=== PATIENT | female | born 1980 | race Two or more races ===

== ENCOUNTER 2022-08-22 19:49 | Emergency (ER) | payer MEDICAID, OTHER ==
[~2022-08-22] VITALS: Ht 152.4 cm; Wt 73.7 kg
[2022-08-22 20:35] LABS: Eosinophils # (auto) 0 10 ^3/uL (0-0.8); Eosinophils % (auto) 0.1 % (0.0-7.0); Lymphocytes # (auto) 1.3 10 ^3/uL (0.4-5.4); Monocytes # (auto) 0.2 10 ^3/uL (0-1.3); Monocytes % (auto) 2.1 % (0.0-12.0)
[2022-08-22 20:37] LABS: Basophils # (auto) 0.1 10 ^3/uL (0-0.2); Basophils % (auto) 0.6 % (0.0-2.0); Hematocrit 19.9 % (36.0-46.0); Lymphocytes % (auto) 12.8 % (10.0-50.0); Mean Corpuscular Hemoglobin 24.7 pg (28.0-32.0); Mean Corpuscular Hgb Conc. 32.1 g/dL (32.0-36.0); Neutrophils # (auto) 8.4 10 ^3/uL (1.6-8.6); Neutrophils % (auto) 84.4 % (37.0-80.0); Red Blood Cells 2.58 10^6/uL (4.0-5.20); Red Cell Distribution Width 18.4 % (11.8-14.3); White Blood Cell 9.9 10^3/uL (4.4-10.8)
[2022-08-22 20:39] LABS: Hemoglobin 6.4 g/dL (12.2-16.2)
[2022-08-22 20:57] LABS: Albumin 3.4 g/dL (3.4-5.0); Potassium 3.9 mmol/L (3.5-5.1)
[2022-08-22 21:00] LABS: BUN/Creatinine Ratio 17.9 (10.0-20.0); Bilirubin, Total 0.4 mg/dL (0.2-1.0); Total Protein 6.7 g/dL (6.4-8.2)
[2022-08-22 23:35] VITALS: BP 119/63
[2022-08-22] MEDS ORDERED: ONDANSETRON ODT 4 MG TAB PO ONE (23:45)
[2022-08-22 23:55] VITALS: BP 104/53
[2022-08-23] MEDS ORDERED: MORPHINE SULFATE 4 MG/ML SYR/VIAL IV ONE (01:00)
[2022-08-23 02:49] VITALS: BP 106/54
[2022-08-23 03:40] VITALS: BP 103/59
[2022-08-23 04:00] VITALS: BP 107/60
[2022-08-23 06:28] VITALS: BP 128/81
== END 2022-08-23 06:55 | disposition home or self-care (01) ==
LOC: ER 19:54
DX: O03.9 Complete or unspecified spontaneous abortion without complication (principal); R07.89 Other chest pain; R10.2 Pelvic and perineal pain; Z3A.00 Weeks of gestation of pregnancy not specified
CPT/HCPCS: 36415; 36430; 76801; 80053; 84702; 85025; 86850; 86900; 86901; 86920; 93005; 96374; 99285; J2270; P9016; Q0162

== ENCOUNTER 2022-09-07 04:47 | Inpatient (IN) | payer MEDICAID ==
[~2022-09-07] VITALS: Ht 154.9 cm; Wt 78.8 kg
[2022-09-07 06:48] LABS: Basophils # (auto) 0 10 ^3/uL (0-0.2); Eosinophils # (auto) 0.1 10 ^3/uL (0-0.8); Monocytes # (auto) 0.4 10 ^3/uL (0-1.3); Nucleated Red Blood Cells % 0.1 %; Red Cell Distribution Width 18.1 % (11.8-14.3)
[2022-09-07 06:50] LABS: Basophils % (auto) 0.4 % (0.0-2.0); Eosinophils % (auto) 1.9 % (0.0-7.0); Hematocrit 26.9 % (36.0-46.0); Lymphocytes # (auto) 1.3 10 ^3/uL (0.4-5.4); Lymphocytes % (auto) 22.3 % (10.0-50.0); Mean Corpuscular Hemoglobin 27.1 pg (28.0-32.0); Mean Corpuscular Hgb Conc. 33.2 g/dL (32.0-36.0); Mean Corpuscular Volume 81.6 fL (80.0-100.0); Monocytes % (auto) 6.1 % (0.0-12.0); Neutrophils # (auto) 4.2 10 ^3/uL (1.6-8.6); Neutrophils % (auto) 69.3 % (37.0-80.0)
[2022-09-07 07:05] LABS: Albumin 3.5 g/dL (3.4-5.0); Potassium 3.8 mmol/L (3.5-5.1)
[2022-09-07 07:10] LABS: BUN/Creatinine Ratio 17.7 (10.0-20.0); Bilirubin, Total 0.5 mg/dL (0.2-1.0); Total Protein 7.5 g/dL (6.4-8.2)
[2022-09-07 10:12] LABS: Urine Bacteria None Seen /hpf (None Seen); Urine WBC None Seen /hpf (0 - 5)
[2022-09-07 10:37] LABS: Urine Blood 3+ /uL (Negative)
[2022-09-07] MEDS ORDERED: cefTRIAXone 1GM/50ML D5W 50 ML IV ONE (12:45)
[2022-09-07] MEDS ORDERED: ceFAZolin 1GM/50ML 100 ML IV ONE (13:11)
[2022-09-07] MEDS ORDERED: HYDROmorphone HCL 2 MG/ML VL/or syr ONE (13:21)
[2022-09-07] MEDS ORDERED: MIDAZOLAM HCL 2MG/2ML 2ml VIAL (1mg/ml) ONE (13:21)
[2022-09-07] MEDS ORDERED: fentaNYL CITRATE 100 MCG/2 ML VL ONE (13:21)
[2022-09-07] MEDS ORDERED: ROCURONIUM 10MG/ML 10ML VIAL IV ONE (13:22)
[2022-09-07] MEDS ORDERED: fentaNYL CITRATE 5 ML ONE (13:22)
[2022-09-07] MEDS ORDERED: PROPOFOL 10 MG/ML 20 ML IV ONE (13:22)
[2022-09-07] MEDS ORDERED: NEOSTIGMINE 1 MG/ML INJ (10mg/10ML VIAL) ONE (13:22)
[2022-09-07] MEDS ORDERED: DexAMETHasone SOD PHOS 10MG/1ML VIAL INJ ONE (13:22)
[2022-09-07] MEDS ORDERED: SODIUM CHLORIDE LOCK 10 ML ONE (13:22)
[2022-09-07] MEDS ORDERED: ONDANSETRON HCL 4 MG/2 ML VIAL ONE (13:22)
[2022-09-07] MEDS ORDERED: LIDOCAINE W/ EPINEPHRINE 1% 20ML VIAL ONE (13:25)
[2022-09-07] MEDS ORDERED: BUPIVACAINE 0.25% INJ 50ML VIAL ONE (13:25)
[2022-09-07 13:28] LABS: Partial Thromboplastin Time 24.5 sec (24.6-33.4)
[2022-09-07] MEDS ORDERED: HYDROmorphone HCL 2 MG/ML VL/or syr IV PRN ×2 (13:45→15:30)
[2022-09-07] MEDS ORDERED: METOCLOPRAMIDE HCL 5MG/ml INJ 2ml VIAL IV PRN (13:45)
[2022-09-07] MEDS ORDERED: MORPHINE SULFATE INJ 2 MG/ml SYRG IV PRN ×2 (13:45→15:45)
[2022-09-07] MEDS ORDERED: SUGAMMADEX 200mg/2ml Vial (100MG/ML) IV ONE (15:12)
[2022-09-07] MEDS ORDERED: DOXAPRAM HCL 20 MG/ML 20ML VIAL INJ IV ONE (15:18)
[2022-09-07] MEDS ORDERED: ONDANSETRON HCL 4 MG/2 ML VIAL IV PRN (15:30)
[2022-09-07] MEDS ORDERED: RHO (D) IMMUNE GLOBULIN 300 MCG INJ IM PRN (15:30)
[2022-09-07] MEDS ORDERED: SODIUM CHLORIDE 0.9% 1,000 ML IV SCH (15:30)
[2022-09-07] MEDS ORDERED: NITROGLYCERIN 0.4 MG SL TAB SL PRN (15:45)
[2022-09-07] MEDS: HYDROmorphone HCL 2 MG/ML VL/or syr IV PRN ×3 (16:02→16:25)
[2022-09-07 20:00] VITALS: BP 110/60
[2022-09-07] MEDS: ceFAZolin 1GM/50ML 50 ML IV SCH (20:49)
[2022-09-07] MEDS ORDERED: NORPTMEDS (20:50)
[2022-09-07 22:00] VITALS: BP 95/46
[2022-09-07] MEDS ORDERED: DOCUSATE SOD 100 MG CAP PO PRN (22:00)
[2022-09-07] MEDS: SODIUM CHLORIDE 0.9% 1,000 ML IV SCH (22:00)
[2022-09-07] MEDS ORDERED: HYDROcodone-ACET 10/325MG TAB PO PRN (23:15)
[2022-09-07 23:29] LABS: Eosinophils # (auto) 0 10 ^3/uL (0-0.8); Monocytes # (auto) 0.1 10 ^3/uL (0-1.3)
[2022-09-07 23:30] LABS: Basophils # (auto) 0 10 ^3/uL (0-0.2); Hematocrit 22.7 % (36.0-46.0); Hemoglobin 7.3 g/dL (12.2-16.2); Lymphocytes # (auto) 0.5 10 ^3/uL (0.4-5.4); Lymphocytes % (auto) 5.3 % (10.0-50.0); Mean Corpuscular Hemoglobin 27.2 pg (28.0-32.0); Mean Corpuscular Volume 84.9 fL (80.0-100.0); Monocytes % (auto) 0.9 % (0.0-12.0); Neutrophils # (auto) 9.4 10 ^3/uL (1.6-8.6); Neutrophils % (auto) 93.8 % (37.0-80.0); Red Blood Cells 2.67 10^6/uL (4.0-5.20)
[2022-09-08] VITALS (10 sets, daily range): BP systolic 102–129; BP diastolic 54–71
[2022-09-08] MEDS: ceFAZolin 1GM/50ML 50 ML IV SCH ×3 (04:59→21:40)
[2022-09-08] MEDS ORDERED: BISACODYL 10 MG RECT SUPP PR PRN (07:30)
[2022-09-08] MEDS: HYDROmorphone HCL 2 MG/ML VL/or syr IV PRN ×2 (08:36→15:30)
[2022-09-08] MEDS ORDERED: FER325T PO (09:36)
[2022-09-08] MEDS ORDERED: HYDR-4902 PO (09:36)
[2022-09-08] MEDS ORDERED: DOCU-94 PO (09:36)
[2022-09-08] MEDS: SODIUM CHLORIDE 0.9% 1,000 ML IV SCH ×2 (10:30→23:00)
[2022-09-08 18:25] LABS: Basophils # (auto) 0 10 ^3/uL (0-0.2); Basophils % (auto) 0.2 % (0.0-2.0); Eosinophils # (auto) 0 10 ^3/uL (0-0.8); Eosinophils % (auto) 0.2 % (0.0-7.0); Lymphocytes # (auto) 1.6 10 ^3/uL (0.4-5.4); Monocytes # (auto) 0.6 10 ^3/uL (0-1.3); Neutrophils # (auto) 6.5 10 ^3/uL (1.6-8.6); White Blood Cell 8.8 10^3/uL (4.4-10.8)
[2022-09-08 18:27] LABS: Hematocrit 23.2 % (36.0-46.0); Hemoglobin 7.8 g/dL (12.2-16.2); Lymphocytes % (auto) 18.4 % (10.0-50.0); Mean Corpuscular Hemoglobin 28.2 pg (28.0-32.0); Mean Corpuscular Hgb Conc. 33.8 g/dL (32.0-36.0); Mean Corpuscular Volume 83.6 fL (80.0-100.0); Monocytes % (auto) 7.3 % (0.0-12.0); Neutrophils % (auto) 73.9 % (37.0-80.0); Red Blood Cells 2.78 10^6/uL (4.0-5.20)
[2022-09-09 05:00] VITALS: BP 108/54
[2022-09-09] MEDS: ceFAZolin 1GM/50ML 50 ML IV SCH ×2 (06:09→14:00)
[2022-09-09 08:05] VITALS: BP 120/58
[2022-09-09 08:57] VITALS: BP_SYST 102; BP_SYST 115; BP_DIAS 52; BP_DIAS 68
[2022-09-09] MEDS: SODIUM CHLORIDE 0.9% 1,000 ML IV SCH (11:30)
[2022-09-09 13:00] VITALS: BP 113/60
== END 2022-09-09 14:30 | disposition home or self-care (01) | DRG 564 ==
LOC: ER 04:47 → OVERFLOW 15:55 → WEST WING 17:56
PROVIDERS: ADMIT Obstetrics & Gynecology; ATTEND Obstetrics & Gynecology
PROC: 02N Heart and Great Vessels, Release (ICD-10-PCS; 2022-09-07)
PROC: 10D07Z8 Extraction of Products of Conception, Other, Via Natural or Artificial Opening (ICD-10-PCS; principal; 2022-09-07 14:19)
PROC: 0DNU4ZZ Release Omentum, Percutaneous Endoscopic Approach (ICD-10-PCS; 2022-09-07 14:19)
PROC: 30233N1 Transfusion of Nonautologous Red Blood Cells into Peripheral Vein, Percutaneous Approach (ICD-10-PCS; 2022-09-08)
DX: O03.4 Incomplete spontaneous abortion without complication (principal); K66.0 Peritoneal adhesions (postprocedural) (postinfection); O01.1 Incomplete and partial hydatidiform mole; O01.9 Hydatidiform mole, unspecified
CPT/HCPCS: 36415; 76801; 76817; 80053; 81001; 84702; 85025; 85610; 85730; 86850; 86900; 86901; 86920; 96374; G0378; J0690; J1100; J2250; J2405; J2704; J3490

== ENCOUNTER → 2023-01-03 | Outpatient (CLI) | payer MEDICAID ==
[~2023-01-03] MED LIST: DOCU-94 PO; FER325T PO; HYDR-4902 PO; NORPTMEDS
[2023-01-03 08:34] LABS: Basophils # (auto) 0 10 ^3/uL (0-0.2); Lymphocytes # (auto) 1.4 10 ^3/uL (0.4-5.4); Monocytes # (auto) 0.3 10 ^3/uL (0-1.3); Nucleated Red Blood Cells % 0.1 %
[2023-01-03 08:36] LABS: Basophils % (auto) 0.8 % (0.0-2.0); Eosinophils # (auto) 0.2 10 ^3/uL (0-0.8); Eosinophils % (auto) 3.6 % (0.0-7.0); Hematocrit 30.2 % (36.0-46.0); Hemoglobin 9.2 g/dL (12.2-16.2); Lymphocytes % (auto) 30.4 % (10.0-50.0); Mean Corpuscular Hgb Conc. 30.5 g/dL (32.0-36.0); Mean Corpuscular Volume 75.4 fL (80.0-100.0); Neutrophils # (auto) 2.7 10 ^3/uL (1.6-8.6); Neutrophils % (auto) 59.2 % (37.0-80.0); Red Blood Cells 4.01 10^6/uL (4.0-5.20); Red Cell Distribution Width 17.7 % (11.8-14.3); White Blood Cell 4.5 10^3/uL (4.4-10.8)
[2023-01-03 08:38] LABS: Urine Blood Negative /uL (Negative); Urine Clarity HAZY (Clear); Urine Color Yellow (Yellow); Urine Protein, UAD 1+ (Negative); Urine Urobilinogen Normal (Negative)
[2023-01-03 09:13] LABS: Alanine Aminotransferase 29 U/L (7-40); Albumin 4.5 g/dL (3.2-4.8); Alkaline Phosphatase 69 U/L (46-116); Anion Gap 9 (5-15); Aspartate Aminotransferase 24 U/L (13-40); BUN/Creatinine Ratio 10.8 (10.0-20.0); Blood Urea Nitrogen 7 mg/dL (9-23); Carbon Dioxide 24 mmol/L (20-30); Chloride 108 mmol/L (98-107); Cholesterol 160 mg/dL (< 200); Glucose 132 mg/dL (74-106); HDL Cholesterol 43 mg/dL (40-59); LDL Cholesterol 105 mg/dL (< 100); Potassium 3.9 mmol/L (3.5-5.1); Sodium 141 mmol/L (136-145); Triglycerides 105 mg/dL (< 150)
[2023-01-03 09:14] LABS: Bilirubin, Total 0.7 mg/dL (0.2-1.0); Total Protein 7.6 g/dL (5.7-8.2)
[2023-01-03 13:55] LABS: Free T4 (Free Thyroxine) 0.98 ng/dL (0.89-1.76)
[2023-01-04 22:06] LABS: Chlamydia Trachomatis, NAA Negative (Negative); Neisseria gonorrhoeae, NAA Negative (Negative)
== END | disposition home or self-care (01) ==
LOC: LAB 08:10
PROVIDERS: ATTEND Internal Medicine
DX: C02.0 Malignant neoplasm of dorsal surface of tongue (principal); E78.5 Hyperlipidemia, unspecified; D64.9 Anemia, unspecified
CPT/HCPCS: 36415; 80053; 80061; 81003; 81025; 82274; 82607; 83540; 84439; 84443; 85025

== ENCOUNTER → 2023-03-07 | Outpatient (CLI) | payer MEDICAID ==
[2023-03-07 09:53] LABS: Basophils # (auto) 0 10 ^3/uL (0-0.2); Eosinophils # (auto) 0.3 10 ^3/uL (0-0.8); Hematocrit 26.6 % (36.0-46.0); Lymphocytes # (auto) 1.4 10 ^3/uL (0.4-5.4); Mean Corpuscular Hemoglobin 21.9 pg (28.0-32.0); Mean Corpuscular Hgb Conc. 29.9 g/dL (32.0-36.0); Mean Corpuscular Volume 73.2 fL (80.0-100.0); Red Blood Cells 3.64 10^6/uL (4.0-5.20)
[2023-03-07 09:55] LABS: Basophils % (auto) 0.7 % (0.0-2.0); Eosinophils % (auto) 6.1 % (0.0-7.0); Monocytes # (auto) 0.3 10 ^3/uL (0-1.3); Monocytes % (auto) 5.5 % (0.0-12.0); Neutrophils % (auto) 59.7 % (37.0-80.0); Red Cell Distribution Width 19.4 % (11.8-14.3)
[2023-03-07 11:03] LABS: Alanine Aminotransferase 24 U/L (7-40); Albumin 4.5 g/dL (3.2-4.8); Alkaline Phosphatase 76 U/L (46-116); Anion Gap 9 (5-15); Aspartate Aminotransferase 17 U/L (13-40); BUN/Creatinine Ratio 13.8 (10.0-20.0); Bilirubin, Total 0.5 mg/dL (0.2-1.0); Blood Urea Nitrogen 8 mg/dL (9-23); Calcium 8.9 mg/dL (8.5-10.1); Carbon Dioxide 25 mmol/L (20-30); Chloride 105 mmol/L (98-107); Glucose 118 mg/dL (74-106); Sodium 139 mmol/L (136-145); Total Protein 7.3 g/dL (5.7-8.2)
[2023-03-07 11:48] LABS: Hypochromia Moderate; Platelet Estimate Adequate
[2023-03-07 11:49] LABS: Anisocytosis Slight
== END | disposition home or self-care (01) ==
LOC: LAB 09:34
PROVIDERS: ATTEND Internal Medicine
DX: R73.9 Hyperglycemia, unspecified (principal); D50.9 Iron deficiency anemia, unspecified; A04.8 Other specified bacterial intestinal infections
CPT/HCPCS: 36415; 80053; 82274; 83036; 85025

== ENCOUNTER 2023-04-15 07:03 | Inpatient (IN) | payer MEDICAID ==
[2023-04-11 09:56] LABS: Urine Epithelial Cast None Seen /hpf (<5)
[2023-04-11 10:01] LABS: Basophils # (auto) 0 10 ^3/uL (0-0.2); Basophils % (auto) 0.5 % (0.0-2.0); Eosinophils # (auto) 0.1 10 ^3/uL (0-0.8); Hematocrit 30.1 % (36.0-46.0); Hemoglobin 9.2 g/dL (12.2-16.2); Mean Corpuscular Hemoglobin 21.6 pg (28.0-32.0); Monocytes # (auto) 0.3 10 ^3/uL (0-1.3); Neutrophils # (auto) 3.7 10 ^3/uL (1.6-8.6)
[2023-04-11 10:05] LABS: Eosinophils % (auto) 2.2 % (0.0-7.0); Lymphocytes # (auto) 1.3 10 ^3/uL (0.4-5.4); Mean Corpuscular Hgb Conc. 30.4 g/dL (32.0-36.0); Mean Corpuscular Volume 71.1 fL (80.0-100.0); Neutrophils % (auto) 68.3 % (37.0-80.0); Nucleated Red Blood Cells % 0.1 %; Red Blood Cells 4.23 10^6/uL (4.0-5.20); Red Cell Distribution Width 19.1 % (11.8-14.3); White Blood Cell 5.4 10^3/uL (4.4-10.8)
[2023-04-11 10:18] LABS: Urine Bacteria FEW /hpf (None Seen); Urine Blood 3+ /uL (Negative); Urine Clarity HAZY (Clear); Urine Color Yellow (Yellow); Urine Mucus FEW (None Seen); Urine Protein, UAD 1+ (Negative); Urine Specific Gravity 1.025 (1.001-1.035); Urine Urobilinogen Normal (Negative); Urine WBC 8 /hpf (0 - 5); Urine pH 6.5 (5.0-8.0)
[2023-04-11 10:22] LABS: INR 1.04 (0.9-1.15); Partial Thromboplastin Time 27.6 SEC (24.5-34.5); Prothrombin Time 10.9 sec (9.3-11.8)
[2023-04-11 10:50] LABS: Alanine Aminotransferase 19 U/L (7-40); Alkaline Phosphatase 77 U/L (46-116); Anion Gap 9 (5-15); Calcium 9.4 mg/dL (8.5-10.1); Carbon Dioxide 26 mmol/L (20-30); Chloride 105 mmol/L (98-107); Glucose 142 mg/dL (74-106); Sodium 140 mmol/L (136-145)
[2023-04-11 10:51] LABS: BUN/Creatinine Ratio 12.3 (10.0-20.0); Blood Urea Nitrogen 8 mg/dL (9-23)
[2023-04-11 10:52] LABS: Albumin 4.7 g/dL (3.2-4.8); Aspartate Aminotransferase 12 U/L (13-40)
[2023-04-11 10:53] LABS: Bilirubin, Total 0.4 mg/dL (0.2-1.0); Total Protein 8.1 g/dL (5.7-8.2)
[~2023-04-15] VITALS: Ht 152.4 cm; Wt 75.7 kg
[~2023-04-15 07:03] MED LIST changes: +AMOX250C3 PO; -DOCU-94 PO; -FER325T PO; -HYDR-4902 PO; -NORPTMEDS; +OMEP20TA PO; +RIFA150C PO
[2023-04-15] MEDS ORDERED: ceFAZolin 2 GM/D5W100ml 100 ML IV ONE (08:01)
[2023-04-15] MEDS ORDERED: fentaNYL CITRATE 100 MCG/2 ML VL ONE (08:03)
[2023-04-15] MEDS ORDERED: HYDROmorphone HCL 2 MG/ML VL/or syr ONE (08:03)
[2023-04-15] MEDS ORDERED: MIDAZOLAM HCL 2MG/2ML 2ml VIAL (1mg/ml) ONE (08:03)
[2023-04-15] MEDS ORDERED: ONDANSETRON HCL 4 MG/2 ML VIAL ONE (08:04)
[2023-04-15] MEDS ORDERED: KETOROLAC TROMETH 30 MG/ML 1ML VIAL ONE (08:04)
[2023-04-15] MEDS ORDERED: ROCURONIUM 10MG/ML 10ML VIAL IV ONE (08:04)
[2023-04-15] MEDS ORDERED: GLYCOPYRROLATE 0.2 MG/ML 1ML VIAL ONE (08:04)
[2023-04-15] MEDS ORDERED: PROPOFOL 10 MG/ML 20 ML IV ONE (08:04)
[2023-04-15] MEDS ORDERED: DexAMETHasone SOD PHOS 10MG/1ML VIAL INJ ONE (08:04)
[2023-04-15] MEDS ORDERED: ePHEDrine SULFATE 50 MG/ML AMP ONE (08:04)
[2023-04-15] MEDS ORDERED: LIDOCAINE 1% INJ PF 5ML AMP ONE (08:05)
[2023-04-15] MEDS ORDERED: HYDR-4902 PO (08:38)
[2023-04-15] MEDS ORDERED: LIDOCAINE W/ EPINEPHRINE 1% 20ML VIAL ONE (08:57)
[2023-04-15] MEDS ORDERED: KETAMINE 50mg/ML 1ml syringe ONE (09:41)
[2023-04-15] MEDS ORDERED: SUGAMMADEX 200mg/2ml Vial (100MG/ML) IV ONE (10:52)
[2023-04-15 11:09] VITALS: RESP 14; O2SAT 100
[2023-04-15] MEDS ORDERED: HYDROmorphone HCL 2 MG/ML VL/or syr IV PRN ×2 (11:15→16:30)
[2023-04-15] MEDS ORDERED: ONDANSETRON HCL 4 MG/2 ML VIAL IV PRN (11:15)
[2023-04-15] MEDS ORDERED: ceFAZolin 1GM VL ONE (12:00)
[2023-04-15] MEDS ORDERED: NITROGLYCERIN 0.4 MG SL TAB SL PRN (14:45)
[2023-04-15] MEDS ORDERED: MORPHINE SULFATE INJ 2 MG/ml SYRG IV PRN (14:45)
[2023-04-15 16:04] LABS: Basophils # (auto) 0 10 ^3/uL (0-0.2); Basophils % (auto) 0.1 % (0.0-2.0); Eosinophils # (auto) 0 10 ^3/uL (0-0.8); Hematocrit 28.3 % (36.0-46.0); Hemoglobin 8.5 g/dL (12.2-16.2); Lymphocytes # (auto) 0.4 10 ^3/uL (0.4-5.4); Lymphocytes % (auto) 4.1 % (10.0-50.0); Mean Corpuscular Hemoglobin 21.4 pg (28.0-32.0); Mean Corpuscular Volume 71.3 fL (80.0-100.0); Monocytes # (auto) 0.1 10 ^3/uL (0-1.3); Neutrophils # (auto) 9.8 10 ^3/uL (1.6-8.6); Neutrophils % (auto) 94.8 % (37.0-80.0); Nucleated Red Blood Cells % 0.1 %; Red Blood Cells 3.98 10^6/uL (4.0-5.20); Red Cell Distribution Width 19.1 % (11.8-14.3); White Blood Cell 10.3 10^3/uL (4.4-10.8)
[2023-04-15] MEDS ORDERED: IOHEXOL 300 MG/ML 100ML BOTTLE IJ ONE (16:22)
[2023-04-15] MEDS ORDERED: ACETAMINOPHEN 325 MG TAB PO PRN (16:30)
[2023-04-15 18:00] VITALS: BP 111/70; PULSE 113; RESP 16; TEMP 98.5; O2SAT 99
[2023-04-15 18:31] VITALS: BP 111/70; PULSE 100; PULSE 113; RESP 20; TEMP 98.5; O2SAT 98
[2023-04-15] MEDS ORDERED: FERR325T20 PO (19:05)
[2023-04-15] MEDS ORDERED: FOLI-119 PO (19:06)
[2023-04-15 20:00] VITALS: PULSE 98
[2023-04-15] MEDS: SODIUM CHLORIDE 0.9% 1,000 ML IV SCH (23:15)
[2023-04-16] VITALS (9 sets, daily range): BP systolic 91–122; BP diastolic 47–58; PULSE 72–100; RESP 16–18; TEMP 98–99.3; O2SAT 91–96
[2023-04-16] MEDS: HYDROcodone-ACET 10/325MG TAB PO PRN ×3 (00:41→20:46)
[2023-04-16] MEDS: SODIUM CHLORIDE 0.9% 1,000 ML IV SCH ×2 (07:44→15:15)
[2023-04-16 09:19] LABS: Basophils # (auto) 0 10 ^3/uL (0-0.2); Basophils % (auto) 0.4 % (0.0-2.0); Eosinophils # (auto) 0 10 ^3/uL (0-0.8); Eosinophils % (auto) 0.5 % (0.0-7.0); Nucleated Red Blood Cells % 0.1 %
[2023-04-16 09:21] LABS: Hematocrit 23.3 % (36.0-46.0); Lymphocytes # (auto) 1.4 10 ^3/uL (0.4-5.4); Lymphocytes % (auto) 27.8 % (10.0-50.0); Mean Corpuscular Hemoglobin 21.4 pg (28.0-32.0); Mean Corpuscular Hgb Conc. 30.1 g/dL (32.0-36.0); Mean Corpuscular Volume 71.1 fL (80.0-100.0); Monocytes # (auto) 0.3 10 ^3/uL (0-1.3); Monocytes % (auto) 6.5 % (0.0-12.0); Neutrophils # (auto) 3.4 10 ^3/uL (1.6-8.6); Neutrophils % (auto) 64.8 % (37.0-80.0); Red Blood Cells 3.28 10^6/uL (4.0-5.20); Red Cell Distribution Width 18.9 % (11.8-14.3); White Blood Cell 5.2 10^3/uL (4.4-10.8)
[2023-04-16] MEDS ORDERED: ONDANSETRON HCL 4 MG/2 ML VIAL IV PRN (13:00)
[2023-04-16 13:38] LABS: Hematocrit 24.8 % (36.0-46.0); Hemoglobin 7.6 g/dL (12.2-16.2)
[2023-04-16 16:19] LABS: Hematocrit 24.2 % (36.0-46.0); Hemoglobin 7.3 g/dL (12.2-16.2)
[2023-04-17 01:03] VITALS: BP 97/51; PULSE 79; RESP 17; TEMP 98.2
[2023-04-17 05:00] VITALS: BP 97/58; PULSE 82; RESP 17; TEMP 98.5; O2SAT 92
[2023-04-17 05:59] LABS: Hemoglobin 8.6 g/dL (12.2-16.2)
[2023-04-17 08:00] VITALS: PULSE 70; PULSE 85; RESP 18
[2023-04-17] MEDS: HYDROcodone-ACET 10/325MG TAB PO PRN (08:16)
[2023-04-17 09:52] VITALS: BP 111/64; PULSE 84; RESP 17; TEMP 98.5; O2SAT 95
== END 2023-04-17 10:50 | disposition home or self-care (01) | DRG 517 ==
LOC: SUR 07:03 → TELE 14:56 → TELE-CENTR 17:44
PROVIDERS: ADMIT Obstetrics & Gynecology; ATTEND Obstetrics & Gynecology
PROC: 0UL74CZ Occlusion of Bilateral Fallopian Tubes with Extraluminal Device, Percutaneous Endoscopic Approach (ICD-10-PCS; principal; 2023-04-15 09:16)
PROC: 0UDB8ZZ Extraction of Endometrium, Via Natural or Artificial Opening Endoscopic (ICD-10-PCS; 2023-04-15 09:16)
PROC: 30233N1 Transfusion of Nonautologous Red Blood Cells into Peripheral Vein, Percutaneous Approach (ICD-10-PCS; 2023-04-16)
DX: N92.0 Excessive and frequent menstruation with regular cycle (principal); D64.9 Anemia, unspecified; R00.0 Tachycardia, unspecified; Z83.3 Family history of diabetes mellitus; Z30.2 Encounter for sterilization; Z87.11 Personal history of peptic ulcer disease
CPT/HCPCS: 36415; 74178; 80053; 81001; 81025; 84702; 85014; 85018; 85025; 85610; 85730; 86850; 86900; 86901; 86920; G0378; J0690; J1100; J1885; J2250; J2405; J2704; J7042

== ENCOUNTER → 2023-04-22 | Outpatient (CLI) | payer MEDICAID ==
[~2023-04-22] MED LIST changes: +FERR325T20 PO; +FOLI-119 PO; +HYDR-4902 PO
[2023-04-22 09:51] LABS: Basophils # (auto) 0 10 ^3/uL (0-0.2); Basophils % (auto) 0.6 % (0.0-2.0); Eosinophils # (auto) 0.2 10 ^3/uL (0-0.8); Eosinophils % (auto) 3.9 % (0.0-7.0); Hematocrit 33.7 % (36.0-46.0); Hemoglobin 10.3 g/dL (12.2-16.2); Lymphocytes # (auto) 1.4 10 ^3/uL (0.4-5.4); Lymphocytes % (auto) 25.5 % (10.0-50.0); Mean Corpuscular Hemoglobin 22.7 pg (28.0-32.0); Mean Corpuscular Hgb Conc. 30.6 g/dL (32.0-36.0); Mean Corpuscular Volume 74.2 fL (80.0-100.0); Monocytes # (auto) 0.4 10 ^3/uL (0-1.3); Monocytes % (auto) 7.1 % (0.0-12.0); Neutrophils # (auto) 3.4 10 ^3/uL (1.6-8.6); Neutrophils % (auto) 62.9 % (37.0-80.0); Nucleated Red Blood Cells % 0.1 %; Red Blood Cells 4.54 10^6/uL (4.0-5.20); White Blood Cell 5.4 10^3/uL (4.4-10.8)
[2023-04-22 10:41] LABS: Alanine Aminotransferase 29 U/L (7-40); Alkaline Phosphatase 71 U/L (46-116); Anion Gap 7 (5-15); BUN/Creatinine Ratio 15.9 (10.0-20.0); Blood Urea Nitrogen 10 mg/dL (9-23); Calcium 9.3 mg/dL (8.5-10.1); Carbon Dioxide 25 mmol/L (20-30); Chloride 109 mmol/L (98-107); Glucose 126 mg/dL (74-106); Sodium 141 mmol/L (136-145)
[2023-04-22 10:42] LABS: Albumin 4.5 g/dL (3.2-4.8); Aspartate Aminotransferase 16 U/L (13-40); Bilirubin, Total 0.5 mg/dL (0.2-1.0); Total Protein 7.5 g/dL (5.7-8.2)
== END | disposition home or self-care (01) ==
LOC: LAB 09:30
PROVIDERS: ATTEND Obstetrics & Gynecology
DX: D64.9 Anemia, unspecified (principal)
CPT/HCPCS: 36415; 80053; 85025

== ENCOUNTER 2023-05-13 15:00 | Emergency (ER) | payer MEDICAID ==
[~2023-05-13] VITALS: Ht 152.4 cm; Wt 76.5 kg
[2023-05-13 15:57] LABS: Basophils # (auto) 0 10 ^3/uL (0-0.2); Eosinophils # (auto) 0.2 10 ^3/uL (0-0.8); Hemoglobin 8.7 g/dL (12.2-16.2); Lymphocytes # (auto) 1.7 10 ^3/uL (0.4-5.4); Monocytes # (auto) 0.4 10 ^3/uL (0-1.3)
[2023-05-13 15:59] LABS: Basophils % (auto) 0.4 % (0.0-2.0); Eosinophils % (auto) 3.3 % (0.0-7.0); Hematocrit 27.5 % (36.0-46.0); Lymphocytes % (auto) 32.2 % (10.0-50.0); Mean Corpuscular Hemoglobin 23.6 pg (28.0-32.0); Mean Corpuscular Hgb Conc. 31.5 g/dL (32.0-36.0); Mean Corpuscular Volume 74.9 fL (80.0-100.0); Monocytes % (auto) 7.7 % (0.0-12.0); Neutrophils % (auto) 56.4 % (37.0-80.0); Red Blood Cells 3.68 10^6/uL (4.0-5.20); White Blood Cell 5.3 10^3/uL (4.4-10.8)
[2023-05-13 16:05] LABS: Red Cell Distribution Width 21.1 % (11.8-14.3)
[2023-05-13 16:31] LABS: INR 0.98 (0.9-1.15); Partial Thromboplastin Time 26.8 SEC (24.5-34.5); Prothrombin Time 10.3 sec (9.3-11.8)
[2023-05-13 19:45] VITALS: BP 139/78; PULSE 92; RESP 20; TEMP 98.1; O2SAT 100
== END 2023-05-13 19:54 | disposition home or self-care (01) ==
LOC: ER 15:00
DX: N93.8 Other specified abnormal uterine and vaginal bleeding (principal); D50.0 Iron deficiency anemia secondary to blood loss (chronic); E11.9 Type 2 diabetes mellitus without complications; Z98.890 Other specified postprocedural states; Z79.01 Long term (current) use of anticoagulants; Z90.49 Acquired absence of other specified parts of digestive tract; Z98.51 Tubal ligation status
CPT/HCPCS: 36415; 85025; 85610; 85730; 86850; 86900; 86901

== ENCOUNTER → 2023-05-16 | Outpatient (CLI) | payer MEDICAID ==
[2023-05-16 14:45] LABS: Basophils # (auto) 0 10 ^3/uL (0-0.2); Eosinophils # (auto) 0.1 10 ^3/uL (0-0.8); Hemoglobin 8.2 g/dL (12.2-16.2); Lymphocytes # (auto) 1.7 10 ^3/uL (0.4-5.4); Monocytes # (auto) 0.3 10 ^3/uL (0-1.3); Neutrophils # (auto) 3.2 10 ^3/uL (1.6-8.6); White Blood Cell 5.4 10^3/uL (4.4-10.8)
[2023-05-16 14:47] LABS: Basophils % (auto) 0.6 % (0.0-2.0); Eosinophils % (auto) 2.3 % (0.0-7.0); Hematocrit 26.2 % (36.0-46.0); Lymphocytes % (auto) 31.4 % (10.0-50.0); Mean Corpuscular Hemoglobin 23.4 pg (28.0-32.0); Mean Corpuscular Hgb Conc. 31.1 g/dL (32.0-36.0); Mean Corpuscular Volume 75.2 fL (80.0-100.0); Monocytes % (auto) 5.8 % (0.0-12.0); Neutrophils % (auto) 59.9 % (37.0-80.0); Nucleated Red Blood Cells % 0.1 %; Red Blood Cells 3.48 10^6/uL (4.0-5.20); Red Cell Distribution Width 20.8 % (11.8-14.3)
== END | disposition home or self-care (01) ==
LOC: LAB 14:19
PROVIDERS: ATTEND Internal Medicine
DX: N92.0 Excessive and frequent menstruation with regular cycle (principal); Z86.2 Personal history of diseases of the blood and blood-forming organs and certain disorders involving the immune mechanism
CPT/HCPCS: 36415; 82306; 85025